=== PATIENT | male | born 1940 | race Caucasian/White ===

== ENCOUNTER 2019-05-20 06:57 | Outpatient (CLI) | payer OTHER ==
[~2019-05-20 06:57] MED LIST: ASPI325T92 PO; ATOR40TA78 PO; CALC-451 PO; CALC3.7S5 NS; CHOL200024 PO; FINA5TAB4 PO; LACT1POW9 PO; METF10002 PO; OLME1TAB25 PO; OXYC-302 PO; SULF1TAB24 PO
[2019-05-20] MEDS ORDERED: REGADENOSON 0.4 MG/5 ML SYRINGE ONE (16:37)
== END 2019-05-20 23:59 | disposition home or self-care (01) ==
LOC: CFH 06:57
PROVIDERS: ATTEND Physician Assistant Medical
DX: I08.8 Other rheumatic multiple valve diseases (principal); I25.89 Other forms of chronic ischemic heart disease; I10 Essential (primary) hypertension; I44.1 Atrioventricular block, second degree; E78.5 Hyperlipidemia, unspecified; E11.9 Type 2 diabetes mellitus without complications; Z85.51 Personal history of malignant neoplasm of bladder; Z87.891 Personal history of nicotine dependence
CPT/HCPCS: 78452; 93017; 93306; A9502; J2785

== ENCOUNTER 2019-06-23 10:20 | Day surgery (SDC) | payer OTHER ==
[~2019-06-23] VITALS: Ht 177.8 cm; Wt 85.9 kg
[2019-06-23] MEDS ORDERED: SODIUM CHLORIDE 0.9% 1,000 ML IV SCH (11:50)
[2019-06-23 11:54] VITALS: BP 162/81
[2019-06-23] MEDS ORDERED: AMLO-150 PO (12:03)
[2019-06-23] MEDS ORDERED: CHOL20002 PO (12:03)
[2019-06-23] MEDS ORDERED: ALLO300T PO (12:03)
[2019-06-23] MEDS ORDERED: FURO20TA3 PO (12:03)
[2019-06-23] MEDS ORDERED: COLC0.6T37 PO (12:03)
[2019-06-23] MEDS ORDERED: TIZA4CAP PO (12:03)
[2019-06-23] MEDS ORDERED: ASPI-650 PO (12:04)
[2019-06-23] MEDS ORDERED: HEPARIN 1,000 UNITS/ML, 10ML ONE (12:34)
[2019-06-23] MEDS ORDERED: MIDAZOLAM 1 MG/ML, 2ML ONE ×2 (12:34→13:18)
[2019-06-23] MEDS ORDERED: FENTANYL PF 100 MCG/2ML ONE (12:34)
[2019-06-23] MEDS ORDERED: VERAPAMIL 2.5 MG/ML, 2ML ONE (12:34)
[2019-06-23] MEDS ORDERED: LIDOCAINE-MPF 1%, 5ML ONE (12:34)
[2019-06-23 12:39] LABS: ANION GAP 10 mmol/L (5-15); CALCIUM 9.1 mg/dL (8.5-10.1); CHLORIDE 104 mmol/L (98-107); CREATININE 1.15 mg/dL (0.7-1.3)
[2019-06-23] MEDS ORDERED: LIDOCAINE 2%, 20ML ONE (13:09)
[2019-06-23] MEDS ORDERED: ATORVASTATIN 40 MG TABLET PO SCH (21:00)
[2019-06-24] MEDS ORDERED: FUROSEMIDE 20 MG TABLET PO SCH (09:00)
[2019-06-24] MEDS ORDERED: FINASTERIDE 5 MG TABLET PO SCH (09:00)
[2019-06-24] MEDS ORDERED: ALLOPURINOL 300 MG TABLET PO SCH (09:00)
[2019-06-24] MEDS ORDERED: ASPIRIN 325 MG TABLET EC PO SCH (09:00)
[2019-06-24] MEDS ORDERED: OXYcodone/APAP 5/325MG TABLET PO SCH (09:00)
[2019-06-24] MEDS ORDERED: AMLODIPINE 5 MG TABLET PO SCH (09:00)
== END 2019-06-23 16:23 | disposition home or self-care (01) ==
LOC: CACL 10:20
PROVIDERS: ATTEND Internal Medicine Cardiovascular Disease
DX: I47.2 Ventricular tachycardia (principal); I44.1 Atrioventricular block, second degree; I25.10 Atherosclerotic heart disease of native coronary artery without angina pectoris; I25.84 Coronary atherosclerosis due to calcified coronary lesion; I25.9 Chronic ischemic heart disease, unspecified; I10 Essential (primary) hypertension; E11.21 Type 2 diabetes mellitus with diabetic nephropathy; E78.2 Mixed hyperlipidemia; E87.5 Hyperkalemia; Z79.82 Long term (current) use of aspirin; Z79.84 Long term (current) use of oral hypoglycemic drugs; Z79.899 Other long term (current) drug therapy; Z88.5 Allergy status to narcotic agent; Z88.8 Allergy status to other drugs, medicaments and biological substances; Z98.890 Other specified postprocedural states
CPT/HCPCS: 36415; 80048; 93458; 99156; 99157; C1760; C1769; C1894; J1644; J2250; J3010; Q9967

== ENCOUNTER → 2019-12-09 | Outpatient (CLI) | payer OTHER ==
[~2019-12-09] MED LIST changes: +ALLO300T PO; +AMLO-150 PO; +ASPI-650 PO; +CHOL20002 PO; +COLC0.6T37 PO; +FURO20TA3 PO; +TIZA4CAP PO
== END | disposition home or self-care (01) ==
LOC: CFH 11:47
PROVIDERS: ATTEND Internal Medicine Nephrology
DX: Z13.21 Encounter for screening for nutritional disorder (principal); Z13.9 Encounter for screening, unspecified; I12.9 Hypertensive chronic kidney disease with stage 1 through stage 4 chronic kidney disease, or unspecified chronic kidney disease; E11.22 Type 2 diabetes mellitus with diabetic chronic kidney disease; N18.2 Chronic kidney disease, stage 2 (mild); M10.9 Gout, unspecified; E78.5 Hyperlipidemia, unspecified
CPT/HCPCS: 76770